=== PATIENT | female | born 1970 | race Caucasian/White ===

== ENCOUNTER 2020-02-07 11:53 | Emergency (ER) | payer MEDICAID, SELFPAY ==
[2020-02-07] MEDS: LEVOPHED 4 MG/4 ML 4,000 MCG in Dextrose 5%/Water IV Soln. 500 ML 500 ML IV PRN (12:03)
[2020-02-07 12:06] LABS: A-aADO2 390; ABG HEMOGLOBIN 11.3; ABG POTASSIUM 5.4 (3.5-5.1); ABG SITE LEFT RADIAL; ARTERIAL BLD GAS O2 SATURATION 99.7 % (95-100); ARTERIAL BLOOD GAS BASE EXCESS 7.3 (-2.0-2.0); ARTERIAL BLOOD GAS FIO2 100 %; ARTERIAL BLOOD GAS PCO2 53 mmHg (35-45); ARTERIAL BLOOD GAS PO2 257 mmHg (75-100); ARTERIAL BLOOD GAS pH 7.41 (7.35-7.45); CARBOXYHEMOGLOBIN 2.7 % THgb (0.0-6.9); HCO3- 33.6 (22-28); HGB O2 SAT 96.3 g/dF (94-100); Methhemoglobin 0.7 % (1.4-1.5)
[2020-02-07] MEDS ORDERED: Sodium Chloride 0.9% 1000 ML 1,000 ML ONE (12:08)
[2020-02-07] MEDS ORDERED: Sodium Chloride 100ML MINI-BAG PLUS 100 ML IV ONE (12:11)
[2020-02-07] MEDS ORDERED: Zosyn 3.375 GM Vial IV ONE (12:11)
[2020-02-07] MEDS: Sodium Chloride 0.9% 1000 ML 1,000 ML IV STA (12:15)
[2020-02-07 12:19] LABS: Hematocrit 42.5 % (35-47); Hemoglobin 11.3 gm/dl (12.0-16.0); Mean Cell Volume 106.3 fl (78-100); Mean Corpuscular Hemoglobin 28.3 pg (26-32); Mean Corpuscular Hgb Concent. 26.6 g/dl (32-36); Mean Platelet Volume 10.8 fl (7.5-11.0); Platelet Count 310 K/mm3 (150-450); Red Cell Distribution Width 16.5 % (11.5-14.0); White Blood Count 15.1 K/mm3 (4.0-10.5)
[2020-02-07] MEDS: Zosyn 3.375 GM Vial 3.375 GM in Sodium Chloride 100ML MINI-BAG PLUS 100 ML IV ONE (12:20)
[2020-02-07 12:29] LABS: INR 1.06 (0.8-3.0)
[2020-02-07 12:31] LABS: PTT 24.5 SECONDS (25.3-37.0)
[2020-02-07 12:34] LABS: Appearance CLOUDY (CLEAR); Bacteria RARE /HPF (NEGATIVE); Bilirubin NEGATIVE (NEGATIVE); Blood NEGATIVE Ery/ul (0-5); Epithelial Cells RARE /HPF (FEW); Glucose 150 mg/dL (NEGATIVE); Hyaline Casts 26-50 /LPF (0-2); Ketones NEGATIVE (NEGATIVE); Leukocyte Esterase NEGATIVE (NEGATIVE); Mucus SLIGHT /HPF (NEGATIVE); Nitrite NEGATIVE (NEGATIVE); Protein,Urine Dip 100 (Negative); Specific Gravity 1.015 (1.005-1.025); Urobilinogen 2 mg/dL (0-1)
--- NOTE | 2020-02-07 12:35 | ERPHSYRPT ---
- History of Present Illness Time Seen by Provider: 02/07/20 11:55 Source: EMS, assisted records Exam Limitations: clinical condition Physician History: Patient is a 49-year-old female who has had a massive stroke apparently in the remote past with flaccid hemiplegia. Who apparently began experiencing respiratory distress at the assisted and became unresponsive EMS arrived she was tachycardic blood pressure was palpable in the 70s she had O2 sats in the 50s she was intubated and transferred to the hospital. Review of her assisted records indicate diagnosis of CVA in the past hypotension torticollis cardiomegaly anemia noninfective gastroenteritis hypertension gastroparesis history of acute respiratory failure talk at [place] syndrome mixed hyperlip idemia metabolic encephalopathy acute embolism and thrombus duodenal ulcer with hemorrhage gastro esophageal reflux disease. Timing/Duration: today Activities at Onset: none Severity of Dyspnea-Max: severe Severity of Dyspnea-Current: moderate Possible Cause: occasional episodes Modifying Factors: Improves With: oxygen (She was intubated due to hypoxia and hypercapnia) Allergies/Adverse Reactions: erythromycin base [Erythromycin Base] Allergy (Severe, Verified 02/07/20 12:09) Sulfa (Sulfonamide Antibiotics) [Sulfa(Sulfonamide Antibiotics)] Allergy (Severe, Verified 02/07/20 12:09) morphine Allergy (Verified 02/07/20 12:09) Home Medications: No Home Meds [No Home Meds] 0 03/10/12 [History] Hx Tetanus, Diphtheria Vaccination/Date Given: No Hx Influenza Vaccination/Date Given: No Hx Pneumococcal Vaccination/Date Given: No - Review of Systems All Other Systems: Unable due to condition - Past Medical History Pertinent Past Medical History: No Neurological History: No Pertinent History ENT History: No Pertinent History Cardiac History: No Pertinent History Respiratory History: No Pertinent History Endocrine Medical History: No Pertinent History Musculoskeletal History: No Pertinent History GI Medical History: No Pertinent History History: No Pertinent History Psycho-Social History: No Pertinent History Female Reproductive Disorders: No Pertinent History - Past Surgical History Past Surgical History: Yes Neuro Surgical History: No Pertinent History Cardiac: No Pertinent History Respiratory: No Pertinent History Gastrointestinal: No Pertinent History Genitourinary: No Pertinent History Musculoskeletal: No Pertinent History Female Surgical History: Tubal Ligation - Social History Smoking Status: Current every day smoker How long have you smoked: 20 YEARS Exposure to second hand smoke: Yes Drug Use: none Patient Lives Alone: No - Nursing Vital Signs Nursing Vital Signs: Initial Vital Signs Temperature 98.8 F 02/07/20 11:53 Pulse Rate 109 H 02/07/20 11:53 Respiratory Rate 6 L 02/07/20 11:53 Blood Pressure 72/48 02/07/20 11:53 O2 Sat by Pulse Oximetry 97 02/07/20 11:53 Pain Scale Pain Intensity 0 - Physical Exam General Appearance: other (Unresponsive Irma Coma Scale of 3) Eye Exam: PERRL/EOMI Ears, Nose, Throat Exam: normal pharynx Neck Exam: normal inspection, full range of motion Respiratory Exam: respiratory distress, diminished breath sounds, rhonchi Cardiovascular/Chest Exam: tachycardia Abdominal/Gastrointestinal Exam: soft, other (Tube present), No normal bowel sounds, No guarding Extremity Exam: non-tender, normal inspection Peripheral Pulses Exam: carotid (R): 2+, carotid (L): 2+ Skin Exam: normal color, warm, dry Lymphatic Exam: adenopathy SpO2 Interpretation: hypoxic SpO2: 98 O2 Delivery: Ventilator - Course Nursing assessment & vital signs reviewed: Yes EKG Interpreted by Me: RATE (95), Sinus Rhythm, Left Skytop Deviation, Left Bundle Branch Block, Non-specific ST Changes - Radiology Exams Chest X-ray Interpretation: Reviewed by me, Other (Chest x-ray shows hazy opacities in the left lung clear right lung small left pleural effusion.) Ordered Tests: Active Orders 24 hr Category Date Time Status Rotary Surface Grinder STAT Care 02/07/20 12:01 Active Catheter-[place] Ng STAT Care 02/07/20 12:00 Active EKG-ER Only STAT Care 02/07/20 12:00 Active IV Insertion STAT Care 02/07/20 12:00 Active CHEST 1 VIEW (PORTABLE) Stat Exams 02/07/20 12:01 Completed AMYLASE Stat Lab 02/07/20 12:00 Completed ARTERIAL BLOOD GASES Urgent Lab 02/07/20 12:00 Completed BLOOD CULTURE Stat Lab 02/07/20 12:18 Received CBC W DIFF Stat Lab 02/07/20 12:00 Completed CK-Creatinine Phosphokinase Stat Lab 02/07/20 12:00 Completed CMP Stat Lab 02/07/20 12:00 Completed CULTURE,URINE Stat Lab 02/07/20 12:23 Ordered D-DIMER QUANTITATIVE Stat Lab 02/07/20 12:00 Completed LIPASE Stat Lab 02/07/20 12:00 Completed Lactic Acid Stat Lab 02/07/20 12:00 Completed MAGNESIUM Stat Lab 02/07/20 12:00 Completed Manual Differential NC Stat Lab 02/07/20 12:00 Completed NT PRO BNP Stat Lab 02/07/20 12:00 Completed PROTIME WITH INR Stat Lab 02/07/20 12:00 Completed PTT Stat Lab 02/07/20 12:00 Completed TROPONIN Q3H Lab 02/07/20 12:00 Completed TROPONIN Q3H Lab 02/07/20 15:15 Ordered TROPONIN Q3H Lab 02/07/20 18:15 Ordered TROPONIN Q3H Lab 02/07/20 21:15 Ordered TROPONIN Q3H Lab 02/08/20 00:15 Ordered UA W/RFX UR CULTURE Stat Lab 02/07/20 12:23 Completed Medication Summary Generic Name Dose Route Start Last Admin Trade Name Freq PRN Reason Stop Dose Admin Norepinephrine 4,000 mcg/ 504 mls @ 37.8 mls/hr 02/07/20 12:00 02/07/20 12:03 Dextrose IV 03/08/20 11:59 5 mcg/min .[id number] PRN 37.8 mls/hr SEVERE HYPOTENSION Administration Protocol 5 MCG/MIN Midazolam HCl 50 mg/ Sodium 250 mls @ 10 mls/hr 02/07/20 13:30 02/07/20 13:46 Chloride IV 03/08/20 13:29 2 mg/hr .Q24H PRN 10 mls/hr SEDATION Administration Protocol 2 MG/HR Discontinued Medications Generic Name Dose Route Start Last Admin Trade Name Freq PRN Reason Stop Dose Admin Sodium Chloride 1,000 mls @ 999 mls/hr 02/07/20 12:00 02/07/20 13:21 Sodium Chloride 0.9% 1000 Ml IV 02/07/20 13:00 Infused .Q1H1M STA Infusion Piperacillin Sod/Tazobactam 100 mls @ 200 mls/hr 02/07/20 12:08 02/07/20 12:20 Sod 3.375 gm/ Sodium Chloride IV 02/07/20 12:37 200 mls/hr STAT ONE Administration Sodium Chloride Confirm 02/07/20 12:08 Sodium Chloride 0.9% 1000 Ml Administered 02/07/20 12:09 Dose 1,000 mls @ ud .ROUTE .STK-MED ONE Sodium Chloride Confirm 02/07/20 12:11 Sodium Chloride 100ml Mini-Bag Plus Administered 02/07/20 12:12 Dose 100 mls @ IV .STK-MED ONE Piperacillin Sod/Tazobactam Sod Confirm 02/07/20 12:11 Zosyn 3.375 Gm Vial Administered 02/07/20 12:12 Dose 3.375 gm IV .STK-MED ONE Lab/Rad Data: Laboratory Result Diagrams 02/07/20 12:00 02/07/20 12:00 Laboratory Results 02/07/20 02/07/20 02/07/20 Range/Units 12:23 12:00 12:00 WBC (4.0-10.5) K/mm3 RBC (4.1-5.4) M/mm3 Hgb (12.0-16.0) gm/dl Hct (35-47) % MCV (78-100) fl MCH (26-32) pg MCHC (32-36) g/dl RDW (11.5-14.0) % Plt Count (150-450) K/mm3 MPV (7.5-11.0) fl PT (9.95-12.35) SECONDS INR (0.8-3.0) APTT (25.3-37.0) SECONDS D-Dimer (215-500) ng/mL Puncture Site LEFT RADIAL pCO2 53 H (35-45) mmHg pO2 257 H* (75-100) mmHg Base Excess 7.3 H (-2.0-2.0) O2 Saturation 96.3 (94-100) g/dF ABG pH 7.41 (7.35-7.45) ABG HCO3 33.6 H* (22-28) ABG O2 Sat (Measured) 99.7 (95-100) % Herber Test NOT APPLICABLE A-a Gradient 390 a/A Ratio 0.40 Hemoglobin 11.3 Carboxyhemoglobin 2.7 (0.0-6.9) % THgb Methemoglobin 0.7 L (1.4-1.5) % Potassium 5.4 H (3.5-5.1) Temperature 37.0 C POC O2 Flow Rate 100 % Sodium (137-145) mmol/L Chloride (98-107) mmol/L Carbon Dioxide (22-30) mmol/L Anion Gap (5-15) MEQ/L BUN (7-17) mg/dL Creatinine (0.52-1.04) mg/dL Estimated GFR ML/MIN Glucose (74-106) mg/dL Lactic Acid (0.4-2.0) Calcium (8.4-10.2) mg/dL Magnesium (1.6-2.3) mg/dL Total Bilirubin (0.2-1.3) mg/dL AST (14-36) U/L ALT (0-35) U/L Alkaline Phosphatase (38-126) U/L Creatine Kinase (30-135) U/L Troponin I 0.035 H (0.000-0.034) ng/mL NT-Pro-B Natriuret Pep (0-900) pg/mL Serum Total Protein (6.3-8.2) g/dL Albumin (3.5-5.0) g/dL Amylase (30-110) U/L Lipase (23-300) U/L Urine Color JIE (YELLOW) Urine Appearance CLOUDY (CLEAR) Urine pH 5.0 (5-6) Ur Specific [place] 1.015 (1.005-1.025) Urine Protein 100 (Negative) Urine Ketones NEGATIVE (NEGATIVE) Urine Blood NEGATIVE (0-5) Estrada/ul Urine Nitrite NEGATIVE (NEGATIVE) Urine Bilirubin NEGATIVE (NEGATIVE) Urine Urobilinogen 2 (0-1) mg/dL Ur Leukocyte Esterase NEGATIVE (NEGATIVE) Urine WBC (Auto) 11-15 (0-5) /HPF Urine RBC (Auto) 6-10 (0-2) /HPF U Hyaline Cast (Auto) 26-50 (0-2) /LPF U Epithel Cells (Auto) RARE (FEW) /HPF Urine Bacteria (Auto) RARE (NEGATIVE) /HPF Urine Mucus (Auto) SLIGHT (NEGATIVE) /HPF Urine Culture Reflexed ORDERED SEPARATELY (NO) Urine Glucose 150 (NEGATIVE) mg/dL 02/07/20 02/07/20 02/07/20 Range/Units 12:00 12:00 12:00 WBC (4.0-10.5) K/mm3 RBC (4.1-5.4) M/mm3 Hgb (12.0-16.0) gm/dl Hct (35-47) % MCV (78-100) fl MCH (26-32) pg MCHC (32-36) g/dl RDW (11.5-14.0) % Plt Count (150-450) K/mm3 MPV (7.5-11.0) fl PT 12.0 (9.95-12.35) SECONDS INR 1.06 (0.8-3.0) APTT 24.5 L (25.3-37.0) SECONDS D-Dimer 1241 H* (215-500) ng/mL Puncture Site pCO2 (35-45) mmHg pO2 (75-100) mmHg Base Excess (-2.0-2.0) O2 Saturation (94-100) g/dF ABG pH (7.35-7.45) ABG HCO3 (22-28) ABG O2 Sat (Measured) (95-100) % Herber Test A-a Gradient a/A Ratio Hemoglobin Carboxyhemoglobin (0.0-6.9) % THgb Methemoglobin (1.4-1.5) % Potassium 5.4 H (3.5-5.1) Temperature C POC O2 Flow Rate % Sodium 139 (137-145) mmol/L Chloride 100 (98-107) mmol/L Carbon Dioxide 34 H (22-30) mmol/L Anion Gap 10.3 (5-15) MEQ/L BUN 21 H (7-17) mg/dL Creatinine 0.50 L (0.52-1.04) mg/dL Estimated GFR > 60.0 ML/MIN Glucose 373 H (74-106) mg/dL Lactic Acid 3.6 H (0.4-2.0) Calcium 8.3 L (8.4-10.2) mg/dL Magnesium 2.2 (1.6-2.3) mg/dL Total Bilirubin 0.40 (0.2-1.3) mg/dL AST 58 H (14-36) U/L ALT 65 H (0-35) U/L Alkaline Phosphatase 209 H (38-126) U/L Creatine Kinase < 20 L (30-135) U/L Troponin I (0.000-0.034) ng/mL NT-Pro-B Natriuret Pep 581 (0-900) pg/mL Serum Total Protein 5.9 L (6.3-8.2) g/dL Albumin 2.9 L (3.5-5.0) g/dL Amylase 124 H (30-110) U/L Lipase 42 (23-300) U/L Urine Color (YELLOW) Urine Appearance (CLEAR) Urine pH (5-6) Ur Specific [place] (1.005-1.025) Urine Protein (Negative) Urine Ketones (NEGATIVE) Urine Blood (0-5) Estrada/ul Urine Nitrite (NEGATIVE) Urine Bilirubin (NEGATIVE) Urine Urobilinogen (0-1) mg/dL Ur Leukocyte Esterase (NEGATIVE) Urine WBC (Auto) (0-5) /HPF Urine RBC (Auto) (0-2) /HPF U Hyaline Cast (Auto) (0-2) /LPF U Epithel Cells (Auto) (FEW) /HPF Urine Bacteria (Auto) (NEGATIVE) /HPF Urine Mucus (Auto) (NEGATIVE) /HPF Urine Culture Reflexed (NO) Urine Glucose (NEGATIVE) mg/dL 02/07/20 Range/Units 12:00 WBC 15.1 H (4.0-10.5) K/mm3 RBC 4.00 L (4.1-5.4) M/mm3 Hgb 11.3 L (12.0-16.0) gm/dl Hct 42.5 (35-47) % MCV 106.3 H (78-100) fl MCH 28.3 (26-32) pg MCHC 26.6 L (32-36) g/dl RDW 16.5 H (11.5-14.0) % Plt Count 310 (150-450) K/mm3 MPV 10.8 (7.5-11.0) fl PT (9.95-12.35) SECONDS INR (0.8-3.0) APTT (25.3-37.0) SECONDS D-Dimer (215-500) ng/mL Puncture Site pCO2 (35-45) mmHg pO2 (75-100) mmHg Base Excess (-2.0-2.0) O2 Saturation (94-100) g/dF ABG pH (7.35-7.45) ABG HCO3 (22-28) ABG O2 Sat (Measured) (95-100) % Herber Test A-a Gradient a/A Ratio Hemoglobin Carboxyhemoglobin (0.0-6.9) % THgb Methemoglobin (1.4-1.5) % Potassium (3.5-5.1) Temperature C POC O2 Flow Rate % Sodium (137-145) mmol/L Chloride (98-107) mmol/L Carbon Dioxide (22-30) mmol/L Anion Gap (5-15) MEQ/L BUN (7-17) mg/dL Creatinine (0.52-1.04) mg/dL Estimated GFR ML/MIN Glucose (74-106) mg/dL Lactic Acid (0.4-2.0) Calcium (8.4-10.2) mg/dL Magnesium (1.6-2.3) mg/dL Total Bilirubin (0.2-1.3) mg/dL AST (14-36) U/L ALT (0-35) U/L Alkaline Phosphatase (38-126) U/L Creatine Kinase (30-135) U/L Troponin I (0.000-0.034) ng/mL NT-Pro-B Natriuret Pep (0-900) pg/mL Serum Total Protein (6.3-8.2) g/dL Albumin (3.5-5.0) g/dL Amylase (30-110) U/L Lipase (23-300) U/L Urine Color (YELLOW) Urine Appearance (CLEAR) Urine pH (5-6) Ur Specific [place] (1.005-1.025) Urine Protein (Negative) Urine Ketones (NEGATIVE) Urine Blood (0-5) Estrada/ul Urine Nitrite (NEGATIVE) Urine Bilirubin (NEGATIVE) Urine Urobilinogen (0-1) mg/dL Ur Leukocyte Esterase (NEGATIVE) Urine WBC (Auto) (0-5) /HPF Urine RBC (Auto) (0-2) /HPF U Hyaline Cast (Auto) (0-2) /LPF U Epithel Cells (Auto) (FEW) /HPF Urine Bacteria (Auto) (NEGATIVE) /HPF Urine Mucus (Auto) (NEGATIVE) /HPF Urine Culture Reflexed (NO) Urine Glucose (NEGATIVE) mg/dL - Progress Progress: improved Air Movement: poor Blood Culture(s) Obtained: Yes Antibiotics given: Yes Discussed with Dr.: Woodson - Departure Departure Disposition: Transfer (Patient will be transferred to [facility] to the care of Dr. Chang she will be an inpatient ICU. They did request a COVID swab prior to transfer.) Clinical Impression: Acute respiratory failure Condition: Good Critical Care Time: Yes Critical Care Time(excluding separately billable procedures): Critical 30-74 mins Referrals: CHARITY MENESES [Primary Care Provider] -
--- NOTE | 2020-02-07 12:37 | XRAY ---
Indication: Hypoxia. Comparison: None Portable chest demonstrates endotracheal tube tip 2 cm above izabela. Lung simpson underinflated with diffuse left lung hazy airspace opacities and small left effusion. Remaining heart, right lung, and bony thorax unremarkable.
[2020-02-07 12:42] LABS: ALBUMIN 2.9 g/dL (3.5-5.0); ALKALINE PHOSPHATASE 209 U/L (38-126); AMYLASE 124 U/L (30-110); ANION GAP 10.3 MEQ/L (5-15); BLOOD UREA NITROGEN 21 mg/dL (7-17); CHLORIDE 100 mmol/L (98-107); Calcium 8.3 mg/dL (8.4-10.2); Carbon Dioxide 34 mmol/L (22-30); Glucose 373 mg/dL (74-106); LIPASE 42 U/L (23-300); MAGNESIUM 2.2 mg/dL (1.6-2.3); NT PRO BNP 581 pg/mL (0-900); Potassium 5.4 mmol/L (3.5-5.1); SGOT/AST 58 U/L (14-36); SGPT/ALT 65 U/L (0-35); SODIUM 139 mmol/L (137-145); Total Protein 5.9 g/dL (6.3-8.2)
[2020-02-07 12:49] LABS: CK-Creatinine Phosphokinase < 20 U/L (30-135)
[2020-02-07] MEDS: Versed 50 MG/ 10 Ml MDV*** 50 MG in Sodium Chloride 0.9% 250 ML 240 ML IV PRN (13:46)
[2020-02-07 14:26] VITALS: BP 95/75; PULSE 87; O2SAT 100
[2020-02-07 15:18] LABS: Lymphocytes 5 % (24-44); Monocyte 3 % (0.0-12.0); Neutrophils 92 % (36.0-66.0); Total Cells Counted 100
[2020-02-07 15:19] LABS: ANISOCYTOSIS 1+; Basophilic Stippling 1+; Platelet Estimate NORMAL (NORMAL); Polychromasia RARE
== END 2020-02-07 15:42 | disposition short-term general hospital (02) ==
LOC: ED 11:53
DX: J96.00 Acute respiratory failure, unspecified whether with hypoxia or hypercapnia (principal)
CPT/HCPCS: 36000; 36415; 36600; 51702; 71045; 80053; 81001; 82150; 82375; 82550; 82803; 83605; 83690; 83735; 83880; 84484; 85025; 85379; 85610; 85730; 87040; 87086; 93005; 93041; 94002; 94799; 96360; 96365; 96367; 99285; 99291; J2250